=== PATIENT | male | born 1975 | race Caucasian/White ===

== ENCOUNTER 2024-10-03 09:18 | Emergency (ER) | payer MEDICAID ==
[~2024-10-03] VITALS: Ht 167.6 cm; Wt 81.8 kg
[2024-10-03 09:24] VITALS: TEMP 98.3
[2024-10-03 12:37] LABS: ANION GAP 7 mmol/L (8-16); BASOPHILS % (AUTO) 0.9 % (0.0-2.0); CALCIUM, TOTAL 8.8 mg/dL (8.8-10.5); CARBON DIOXIDE 30 mmol/L (22-29); CHLORIDE 103 mmol/L (98-107); CREATININE 0.77 mg/dL (0.60-1.30); EOSINOPHILS % (AUTO) 2.3 % (1.0-6.0); GLOMERULAR FILTR. RATE CALC > 60 mL/min (>60); GLUCOSE,RANDOM 126 mg/dL (70-110); HEMATOCRIT 43.5 % (41-53); HEMOGLOBIN 14.7 g/dL (13.5-17.5); LYMPHOCYTES # (AUTO) 1.5 K/uL (1.0-4.8); LYMPHOCYTES % (AUTO) 17.3 % (22.0-44.0); MEAN CORPUSCULAR HGB CONC 33.8 G/dL (31.0-37.0); MEAN CORPUSCULAR VOLUME 89 fL (80-100); MONOCYTES # (AUTO) 0.6 K/uL (0.1-1.0); NEUTROPHILS # (AUTO) 6.4 K/uL (1.8-7.7); NEUTROPHILS % (AUTO) 72.5 % (40.0-70.0); PLATELET COUNT (AUTO) 318 K/uL (150-450); POTASSIUM 3.8 mmol/L (3.5-5.1); RED BLOOD CELL COUNT(AUTO) 4.91 MIL/uL (4.50-5.90); RED CELL DISTRIBUTION WIDTH 13.7 % (11.5-14.5); SODIUM SERUM 140 mmol/L (136-145); UREA NITROGEN, BLOOD 10 mg/dL (7-18); WHITE BLOOD COUNT (AUTO) 8.9 K/uL (4.5-11.0)
[2024-10-03] MEDS: LIDOCAINE 1% 10 ML VIAL SQ ONE (13:01)
[2024-10-03] MEDS: DOXYCYCLINE HYCLATE 100 MG TABLET PO ONE (13:01)
[2024-10-03] MEDS: CefTRIAXone 1 GM/DEXTROSE 50 ML IV ONE (13:01)
[2024-10-03 13:35] VITALS: BP 158/94; PULSE 91; RESP 18; O2SAT 98
[2024-10-03] MEDS ORDERED: ACET-2080 PO (13:46)
[2024-10-03] MEDS ORDERED: DOXY-354 PO (13:46)
[2024-10-03] MEDS ORDERED: IBUP-1554 PO (13:46)
[2024-10-03] MEDS ORDERED: CEPH-558 PO (13:46)
[2024-10-03] MEDS: PERTUSS(ACELL),DIPH,TET/PF 0.5 ML SYRINGE [ADULT] IM. ONE (14:04)
== END 2024-10-03 14:16 | disposition home or self-care (01) ==
LOC: EMS 09:46
DX: L03.113 Cellulitis of right upper limb (principal); M70.21 Olecranon bursitis, right elbow; R19.04 Left lower quadrant abdominal swelling, mass and lump; Y93.89 Activity, other specified
CPT/HCPCS: 99284; 96365; 10060; 80048; 85025; 36415; 90715; 90471; J0696; J3490

== ENCOUNTER 2025-08-22 08:18 | Emergency (ER) | payer MEDICAID ==
[~2025-08-22] VITALS: Ht 167.6 cm; Wt 81.8 kg
[~2025-08-22 08:18] MED LIST: ACET-2080 PO; CEPH-558 PO; DOXY-354 PO; IBUP-1554 PO
[2025-08-22 08:25] VITALS: TEMP 97.9
[2025-08-22] MEDS ORDERED: AMLO-258 PO (08:31)
[2025-08-22] MEDS ORDERED: BUTA-318 PO (08:31)
[2025-08-22 10:49] LABS: PLATELET COUNT (AUTO) 424 K/uL (150-450); RED BLOOD CELL COUNT(AUTO) 4.42 MIL/uL (4.50-5.90); RED CELL DISTRIBUTION WIDTH 13.0 % (11.5-14.5); WHITE BLOOD COUNT (AUTO) 9.2 K/uL (4.5-11.0)
[2025-08-22 10:53] LABS: CALCIUM, TOTAL 8.4 mg/dL (8.8-10.5); CREATININE 0.52 mg/dL (0.60-1.30); GLOMERULAR FILTR. RATE CALC > 60 mL/min (>60); GLUCOSE,RANDOM 101 mg/dL (70-110); SODIUM SERUM 135 mmol/L (136-145); UREA NITROGEN, BLOOD 13 mg/dL (7-18)
[2025-08-22] MEDS: ACETAMINOPHEN 1000 MG/ISO-OSM 100 ML IV ONE (11:15)
[2025-08-22] MEDS: LABETALOL HCL 5 MG/ML 20 ML VIAL IVP ONE (11:39)
[2025-08-22 12:36] VITALS: BP 145/95; PULSE 70; RESP 15; O2SAT 98
== END 2025-08-22 12:57 | disposition home or self-care (01) ==
LOC: EMS 08:21
DX: S06.360A Traumatic hemorrhage of cerebrum, unspecified, without loss of consciousness, initial encounter (principal); R51.9 Headache, unspecified; F15.90 Other stimulant use, unspecified, uncomplicated; Z98.890 Other specified postprocedural states; Z79.899 Other long term (current) drug therapy; X58.XXXA Exposure to other specified factors, initial encounter; Y93.89 Activity, other specified; Y92.89 Other specified places as the place of occurrence of the external cause; Y99.8 Other external cause status
CPT/HCPCS: 99285; 96374; 70450; 96375; 80048; 85025; 85610; 36415; J0360; J3490; J0131